=== PATIENT | male | born 1995 | race Caucasian/White ===

== ENCOUNTER 2018-02-05 18:51 | Emergency (ER) | payer SELFPAY ==
[~2018-02-05] VITALS: Ht 170.2 cm; Wt 74.8 kg
--- NOTE | 2018-02-05 19:08 | NUR ---
pt was seen wanted to leave vss
[2018-02-05 19:09] VITALS: BP 131/85
== END 2018-02-05 19:10 | disposition home or self-care (01) ==
LOC: ER 18:55
DX: F11.20 Opioid dependence, uncomplicated (principal)
CPT/HCPCS: 99283; A4606; Z7610

== ENCOUNTER 2020-02-22 02:58 | Emergency (ER) | payer SELFPAY ==
[~2020-02-22] VITALS: Ht 180.3 cm; Wt 90.7 kg
--- NOTE | 2020-02-22 03:00 | NUR ---
IV LINE ESTABLISHED L FOOT 20 G
--- NOTE | 2020-02-22 03:00 | NUR ---
PT BIBA C/O OVERDOSE ON UNKNOWN SUBSTANCE. PER REPORT, PT WAS GIVEN NARCAN 4MG IM, NARCAN 2MG INH, NAD NARCAN 2MG IVP. PT DROWSY, RESPIRATIONS EVEN AND UNLABORED ON RA W/ NAD NOTED. PT CONNECTED TO THE MONITOR AND POX
--- NOTE | 2020-02-22 03:15 | NUR ---
BLOOD COLLECTED AND SENT TO LAB
[2020-02-22 03:42] LABS: BASOPHILS % (AUTO) 0.5 % (0.0-2.0); EOSINOPHILS % (AUTO) 1.8 % (0.0-6.0); HEMATOCRIT 45 % (39-51); LYMPHOCYTES # (AUTO) 1.9 /CMM (0.8-4.8); LYMPHOCYTES % (AUTO) 28.3 % (20.0-44.0); MEAN CORPUSCULAR HGB CONC 34 g/dl (31.0-36.0); MEAN CORPUSCULAR VOLUME 90 fL (80-96); MONOCYTES # (AUTO) 0.4 /CMM (0.1-1.30); MONOCYTES % (AUTO) 5.6 % (2.0-12.0); NEUTROPHILS # (AUTO) 4.3 /CMM (1.8-8.9); NEUTROPHILS % (AUTO) 63.8 % (43.0-81.0); PLATELET COUNT (AUTO) 232 /CMM (150-450); RED BLOOD CELL COUNT(AUTO) 4.99 MIL/uL (4.5-6.0); WHITE BLOOD COUNT (AUTO) 6.7 K/uL (4.3-11.0)
[2020-02-22 03:48] LABS: CALCIUM, SERUM 9.2 mg/dL (8.5-10.1); CARBON DIOXIDE 28 mmol/L (21-32); CHLORIDE 100 mmol/L (98-107); CREATININE 1.2 mg/dL (0.6-1.3); GLUCOSE 108 mg/dL (74-106); POTASSIUM 3.8 mmol/L (3.5-5.1); SODIUM SERUM 139 mmol/L (136-145); UREA NITROGEN, BLOOD 16 mg/dL (7-18)
[2020-02-22 03:56] LABS: ALANINE AMINOTRANSFERASE 169 U/L (12-78); ALBUMIN 4.2 g/dL (3.4-5.0); ALCOHOL, BLOOD < 3 mg/dL (0-0); ALKALINE PHOSPHATASE 82 U/L (46-116); ASPARTATE AMINOTRANSFERASE 117 U/L (15-37); BILIRUBIN,DIRECT 0.1 mg/dL (0.0-0.2); BILIRUBIN,TOTAL 0.4 mg/dL (0.2-1.0); SALICYLATE 2.9 mg/dL (2.8-20.0); TOTAL PROTEIN, SERUM 8.6 g/dL (6.4-8.2)
[2020-02-22 04:01] LABS: ACETAMINOPHEN 0 ug/ml (10-30)
[2020-02-22 04:01] LABS: APPEARANCE,URINE Clear (CLEAR); BILIRUBIN,URINE Negative (NEGATIVE); BLOOD, URINE Negative Ery/uL (NEGATIVE); COLOR,URINE Dark (YELLOW); KETONES,URINE Negative (NEGATIVE); LEUKOCYTE ESTERASE ,URINE Negative (NEGATIVE); NITRITE, URINE Negative (NEGATIVE); PROTEIN,URINE Negative (NEGATIVE); UGLUCOSE Negative (NEGATIVE); UROBILINOGEN,URINE 0.2 EU/dL (0.2)
--- NOTE | 2020-02-22 06:50 | NUR ---
PT EASILY AROUSED. NO ACUTE DISTRESS NOTED. WILL CONTINUE TO MONITOR
--- NOTE | 2020-02-22 07:28 | NUR ---
Patient discharged to home in stable condition. Written and verbal after care instructions given. Patient verbalizes understanding of instruction.Pt ambulatory with a steady gait. IV removed. Catheter intact and site benign. Pressure and 4x4 applied to site. No bleeding noted.
[2020-02-22 07:29] VITALS: BP 117/84
== END 2020-02-22 07:29 | disposition home or self-care (01) ==
LOC: ER 02:58
DX: T40.601A Poisoning by unspecified narcotics, accidental (unintentional), initial encounter (principal); T50.7X1A Poisoning by analeptics and opioid receptor antagonists, accidental (unintentional), initial encounter; F19.10 Other psychoactive substance abuse, uncomplicated; R94.31 Abnormal electrocardiogram [ECG] [EKG]; Y92.89 Other specified places as the place of occurrence of the external cause
CPT/HCPCS: 36415; 80048; 80076; 80305; 80307; 80329; 81001; 85025; 93005; 99285; G0480; 81000-TC